=== PATIENT | male | born 1950 | race Caucasian/White ===

== ENCOUNTER → 2016-08-29 | Outpatient (CLI) | payer OTHER ==
[~2016-08-29] MED LIST: ALBU18002 INH; AMLO-114 PO; ATOR-22 PO; AZIT500T26 PO; CLR10 PO; DICL-201 PO; GLC/500 PO; HYDR12.55 PO; LISI-725 PO; MULT-506 PO; OMEG10007 PO; PRLSR20 PO
--- NOTE | 2016-08-29 14:06 | DIAGNOSTIC IMAGING REPORT ---
FOOT 2 VIEWS CLINICAL HISTORY: DM, NAVICULAR FRACTURE trauma. Pain. COMPARISON: None. DISCUSSION: No change compared to the prior study read midpole navicular fracture with slight dorsal displacement. No major evidence for interval healing. Pars planus deformity. Subtalar joint is intact. There is no evidence for soft tissue swelling. IMPRESSION: Fracture mid and ventricular unchanged from the prior exam Electronically signed by: Renan Lara M.D. 08/29/2016 2:05 PM Dictated Date/Time: 08/29/2016 2:02 PM
== END | disposition home or self-care (01) ==
LOC: C.RAD 13:08
PROVIDERS: ATTEND Internal Medicine Endocrinology, Diabetes & Metabolism
DX: S92.252A Displaced fracture of navicular [scaphoid] of left foot, initial encounter for closed fracture (principal); X58.XXXA Exposure to other specified factors, initial encounter; E11.9 Type 2 diabetes mellitus without complications

== ENCOUNTER 2017-05-04 04:50 | Inpatient (IN) | payer OTHER ==
[2017-04-07 13:29] VITALS: BMI 35.0
--- NOTE | 2017-04-07 14:04 | PAT Medication Instructions ---
Service Date Apr 07, 2017. Current Home Medication List Albuterol Sulfate (Proair Respiclick), 2 PUFFS INH PRN Amlodipine (Norvasc), 10 MG PO QAM Atorvastatin (Lipitor), 20 MG PO QPM Azithromycin (Zithromax), 500 MG PO 3XWEEK Diclofenac (Voltaren), 75 MG PO BID Fish Oil ([place]-3), 1 CAP PO QAM Hydrochlorothiazide (Hydrochlorothiazide), 1 TAB PO QPM Lisinopril (Zestril), 20 MG PO QAM Metformin Hcl (Glucophage), 500 MG PO BID Multivitamin (Multivitamin), 1 TAB PO QPM Omeprazole (Prilosec), 20 MG PO BID Medication Instructions For Your Scheduled Surgery Azithromycin (Zithromax), 500 MG PO 3XWEEK (continue as directed) - Check with surgeon for instructions: Diclofenac (Voltaren), 75 MG PO BID - Hold the following medications 2 weeks prior to surgery: Fish Oil ([place]-3), 1 CAP PO QAM - Hold the following medications 48 hours prior to surgery: Metformin Hcl (Glucophage), 500 MG PO BID - Hold the following medications the morning of surgery: Lisinopril (Zestril), 20 MG PO QAM - Take the following medications the morning of surgery with a sip of water: Albuterol Sulfate (Proair Respiclick), 2 PUFFS INH PRN Amlodipine (Norvasc), 10 MG PO QAM Omeprazole (Prilosec), 20 MG PO BID - Take the following medications as scheduled the night before surgery: Omeprazole (Prilosec), 20 MG PO BID Multivitamin (Multivitamin), 1 TAB PO QPM Atorvastatin (Lipitor), 20 MG PO QPM Hydrochlorothiazide (Hydrochlorothiazide), 1 TAB PO QPM If you have any questions please call us at [phone] or [phone] or [phone]
[2017-04-07 14:57] LABS: BASO % 0.3 %; BASO ABS # 0.04 K/uL (0-0.2); COMPLETE YES; EOS % 3.2 %; HEMATOCRIT 40.5 % (42-52); IG% 0.5 %; LYMPH % 22.3 %; LYMPH ABS # 2.65 K/uL (1.2-3.4); MEAN CELL VOLUME 90.8 fL (80-100); MEAN CORPUSCULAR HEMOGLOBIN 29.6 pg (25-34); MEAN CORPUSCULAR HGB CONC 32.6 g/dl (32-36); MONO % 4.6 %; NEUT % 69.1 %; PLATELET COUNT 245 K/uL (130-400); RED BLOOD COUNT 4.46 M/uL (4.7-6.1); WHITE BLOOD COUNT 11.86 K/uL (4.8-10.8)
[2017-04-07 14:59] LABS: URINE APPEARANCE CLEAR (CLEAR); URINE COLOR DK YELLOW; URINE EPITHELIAL CELL AUTO >30 /lpf (0-5); URINE NITRITE NEG (NEG); URINE SPECIFIC GRAVITY 1.031 (1.000-1.030); UROBILINOGEN NEG (NEG); ZZUR CULT IF INDIC CLEAN CATCH NO
[2017-04-07 15:04] LABS: BUN/CREATININE RATIO 24.1 (10-20); CALCIUM 9.2 mg/dl (8.5-10.1); CREATININE 1.4 mg/dl (0.60-1.40); POTASSIUM 5.3 mmol/L (3.5-5.1)
[2017-04-07 15:06] LABS: PARTIAL THROMBOPLASTIN RATIO 1.1; PROTHROMBIN TIME (PATIENT) 10.7 SECONDS (9.0-12.0)
[2017-04-07 15:11] LABS: MANUAL MICROSCOPIC REQUIRED? NO; REVIEW REQ? NO
[2017-04-07 15:12] LABS: URINE BILIRUBIN NEG (NEG)
[2017-04-08 06:53] LABS: ESTIMATED AVERAGE GLUCOSE 140 mg/dl; HA1C FLAG Normal (Normal)
--- NOTE | 2017-05-03 15:33 | HISTORY & PHYSICAL EXAMINATION ---
DATE OF ADMISSION: 05/04/2017 CHIEF COMPLAINT: Chronic right hip pain. HISTORY OF PRESENT ILLNESS: This is a 66-year-old male patient of Dr. Weiner, complaining of chronic right hip pain, longstanding, now progressively getting worse. The patient has failed conservative treatment including anti-inflammatories and the use of physical therapy. The patient has increased pain with weightbearing activities and his pain does interfere with his activities of daily living. He has also had intraarticular cortisone injections. PAST MEDICAL HISTORY: Hypertension, hypercholesterolemia, irregular heartbeat, recent pneumonia, carpal tunnel syndrome, diabetes mellitus, rheumatoid arthritis, TMJ, neck problems, sciatica, obesity, kidney stones, and skin cancer with chemotherapy. SOCIAL HISTORY: He is a nonsmoker and nondrinker. FAMILY HISTORY: Noncontributory. REVIEW OF SYSTEMS: The patient complains of right hip chronic pain. Otherwise, denies any shortness of breath, chest pain, nausea, vomiting or any other joint complaints. PAST SURGICAL HISTORY: Hand surgery and tooth extraction surgery. MEDICATIONS: 1. Claritin 10 mg daily. 2. Atorvastatin 20 daily. 3. Metformin 500 mg b.i.d. 4. Amlodipine 10 mg daily. 5. Omeprazole 20 mg daily. 6. Lisinopril 20 mg daily. 7. Diclofenac sodium 75 mg as needed. 8. Azithromycin 500 mg on Thursday, Thursday, and Thursday. 9. Hydrochlorothiazide 12.5 mg daily. 10. ProAir HFA 90 mcg 2 puffs inhalation every 4-6 hours as needed. 11. [place] 3 daily. 12. Centrum Silver multivitamin daily. ALLERGIES: No known drug allergies. PHYSICAL EXAMINATION: GENERAL: Well-developed and well-nourished 66-year-old male in no acute distress. He is alert and oriented x3 and pleasant. HEENT: Normocephalic and atraumatic. Extraocular motions are intact. Pupils are equal and reactive to light. HEART: Irregular rate and rhythm consistent with atrial fibrillation. LUNGS: Clear. ABDOMEN: Soft and nontender. Bowel sounds are present. EXTREMITIES: Right hip reveals passive range of motion with pain into his groin with log rolling at 90/90 degrees. The patient has 5/5 strength. NEUROLOGIC: Neurovascularly, he is intact in his right lower extremity. DIAGNOSES: Right hip end-stage osteoarthritis with a history of hypertension, hypercholesterolemia, irregular heartbeat, atrial fibrillation, carpal tunnel syndrome, diabetes mellitus, rheumatoid arthritis, temporomandibular joint syndrome, neck problems, sciatica, obesity, kidney stones and a history of skin cancer with chemotherapy. PLAN: The patient was advised of his diagnoses. Indications, risks, benefits, and postop course have all been reviewed. The patient wishes to proceed with a right total hip arthroplasty. Necessary consent forms, preoperative testing and clearances will be obtained. JORGE ALBERTO
[~2017-05-04] VITALS: Ht 180.3 cm; Wt 115.0 kg
[2017-05-04] VITALS (11 sets, daily range): BP systolic 116–154; BP diastolic 70–90; PULSE 72–95; TEMP 36.4–37.1; O2SAT 92–100; Ht 180.3 cm; Wt 115.0 kg
[~2017-05-04 04:50] MED LIST changes: -CLR10 PO; +CZR50 PO; -LISI-725 PO
[2017-05-04] MEDS: TRANEXAMIC ACID INJ 1,000 MG in SODIUM CHLORIDE 0.9% 100ML 100 ML IV SCH ×2 (06:00→06:30)
[2017-05-04] MEDS ORDERED: CEFAZOLIN 2000 MG/60 ML D5W 60 ML IV SCH (06:00)
[2017-05-04] MEDS ORDERED: ROPIVACAINE 5MG/ML 30 ML 150 MG, BUPIVACAINE/EPINEPHR 0.5% MPF 30 ML, KETOROLAC TROMETH... INFIL SCH ×6 (06:00)
[2017-05-04] MEDS ORDERED: GABAPENTIN 300 MG CAP PO SCH (06:00)
[2017-05-04] MEDS ORDERED: LACTATED RINGER'S 1000ML 1,000 ML IV SCH (06:00)
[2017-05-04] MEDS ORDERED: FAMOTIDINE 20 MG TAB PO SCH (06:00)
[2017-05-04] MEDS ORDERED: LACTATED RINGER'S 1000ML 500 ML IV ONE (06:00)
[2017-05-04] MEDS ORDERED: ACETAMINOPHEN 500 MG TAB PO SCH (06:00)
[2017-05-04] MEDS ORDERED: CeleBREX 200 MG CAP PO SCH (06:00)
[2017-05-04] MEDS ORDERED: METOCLOPRAMIDE HCL 10 MG TAB PO SCH (06:00)
[2017-05-04] MEDS: LACTATED RINGER'S 1000ML 1,000 ML IV SCH ×2 (06:09→11:04)
[2017-05-04] MEDS ORDERED: BUPIVACAINE 0.5 % 5 MG/1 ML PF 10ML VIAL ONE (06:34)
[2017-05-04] MEDS ORDERED: FENTANYL CITRATE INJ 50 MCG/1 ML 2 ML VIAL IV PRN (06:45)
[2017-05-04] MEDS ORDERED: ATROPINE SULFATE 0.1 MG/ML 5ML SYR IV PRN (06:45)
[2017-05-04] MEDS ORDERED: EpHEDrine SULFATE INJ 50 MG/ML AMP IV PRN (06:45)
[2017-05-04] MEDS ORDERED: ONDANSETRON INJ 2 MG/ML 2 ML VIAL IV PRN ×2 (06:45→09:45)
[2017-05-04] MEDS ORDERED: FENTANYL CITRATE INJ 50 MCG/1 ML 2 ML VIAL ONE (06:48)
[2017-05-04] MEDS ORDERED: MIDAZOLAM HCL 1 MG/ML 2ML VIAL ONE ×2 (06:49)
--- NOTE | 2017-05-04 07:02 | History & Physical Bridge Note ---
H&P Re-Evaluation Bridge Note: I have examined the patient, reviewed the History & Physical and in the interval since the performance of the History & Physical I have noted the following changes of clinical significance: No changes noted
[2017-05-04] MEDS ORDERED: BACITRACIN 50000 UNIT VIAL ONE (07:18)
[2017-05-04] MEDS ORDERED: POVIDONE-IODINE OP SOLN 30 ML BTL ONE (07:18)
[2017-05-04] MEDS ORDERED: ORTHO JOINT ANESTHETIC ONE (08:08)
[2017-05-04] MEDS ORDERED: PROPOFOL IV EMULSION 10 MG/ML 20 ML VIAL IV ONE (08:18)
--- NOTE | 2017-05-04 09:24 | [facility] Post Operative Brief Note ---
Immediate Operative Summary Operative Date May 04, 2017. Pre-Operative Diagnosis Right hip end-stage osteoarthritis Post-Operative Diagnosis Right hip end-stage osteoarthritis Procedure(s) Performed Right total hip arthroplasty Surgeon Dr. Weiner Skate Hop Surgeon(s) Renan Ware PA-C Estimated Blood Loss 100mL Findings end stage djdoa grade 4 subluxation joint Specimens A. Right femoral head Drains 2 hemovac Anesthesia spinal sedation orthomix Complication(s) None Disposition Recovery Room / PACU
[2017-05-04] MEDS ORDERED: SOD PHOSPHATE/SOD BIPHOSPHATE ENEMA 132 ML BTL PR PRN (09:45)
[2017-05-04] MEDS ORDERED: ZOLPIDEM TARTRATE 5 MG TAB PO PRN (09:45)
[2017-05-04] MEDS ORDERED: BISACODYL 10 MG SUPP PR PRN (09:45)
[2017-05-04] MEDS ORDERED: MAGNESIUM HYDROXIDE SUSP 30 ML UDC PO PRN (09:45)
[2017-05-04] MEDS ORDERED: MoRPHine SULFATE 2 MG/ML CARP IV PRN (09:45)
[2017-05-04] MEDS ORDERED: METOCLOPRAMIDE HCL INJ 5 MG/ML 2 ML VIAL IV PRN (09:45)
--- NOTE | 2017-05-04 10:37 | DIAGNOSTIC IMAGING REPORT ---
SINGLE VIEW PELVIS; SINGLE VIEW RIGHT HIP CLINICAL HISTORY: Postoperative examination. FINDINGS: An AP portable view of the hips and pelvis with a crosstable lateral portable view of the right hip are obtained. A bipolar right hip arthroplasty is in near-anatomic alignment. 2 cortical lag screws transfix the acetabular cup. No acute fracture is identified. There are expected postoperative changes overlying the right hip including skin clips, subcutaneous gas, a surgical drain, and soft tissue swelling. Mild arthritic change is noted in the left hip. IMPRESSION: Expected postoperative findings status post right hip arthroplasty. No acute fracture is seen. Electronically signed by: Clem Resendez M.D. 05/04/2017 10:35 AM Dictated Date/Time: 05/04/2017 10:30 AM
[2017-05-04] MEDS ORDERED: GLUCAGON FOR INJ 1 MG VIAL SQ PRN (10:45)
[2017-05-04] MEDS ORDERED: DEXTROSE 50% 50 ML SYR IV PRN (10:45)
[2017-05-04] MEDS ORDERED: GLUCOSE 10 TABS/TUBE PO PRN (10:45)
[2017-05-04] MEDS ORDERED: GLUCOSE 40% GEL 15 GM TUBE PO PRN (10:45)
[2017-05-04] MEDS ORDERED: MoRPHine SULFATE 4 MG/ML 1 ML CARP\\VIAL IV PRN (10:45)
--- NOTE | 2017-05-04 10:48 | Anesthesiology Progress Note ---
Anesthesia Post Op Note Date & Time May 04, 2017 at 10:47 Vital Signs Pain Intensity: 0 Vital Signs Past 12 Hours Date Time Temp Pulse Resp B/P (MAP) Pulse Ox O2 Delivery O2 Flow Rate FiO2 05/04/17 10:31 135/68 05/04/17 10:28 88 17 05/04/17 10:28 90 17 97 05/04/17 10:25 36.4 89 18 124/77 95 Nasal Cannula 3 05/04/17 10:25 124/77 05/04/17 10:23 95 17 99 05/04/17 10:23 92 17 05/04/17 10:20 125/81 05/04/17 10:18 79 18 97 05/04/17 10:18 81 18 05/04/17 10:16 119/83 05/04/17 10:13 86 16 05/04/17 10:13 87 16 99 05/04/17 10:11 126/73 05/04/17 10:08 85 16 97 05/04/17 10:08 74 16 05/04/17 10:06 138/72 05/04/17 10:03 81 19 05/04/17 10:03 90 19 98 05/04/17 10:00 136/85 05/04/17 09:58 69 20 05/04/17 09:58 81 20 99 05/04/17 09:56 126/58 05/04/17 09:53 81 19 05/04/17 09:53 82 19 99 05/04/17 09:51 138/63 05/04/17 09:48 85 26 99 05/04/17 09:48 78 26 05/04/17 09:46 125/72 05/04/17 09:44 125/69 05/04/17 09:43 88 20 05/04/17 09:43 97 20 97 05/04/17 09:41 05/04/17 09:39 36 89 12 125/69 99 Nasal Cannula 3 05/04/17 05:32 36.4 77 20 154/72 95 Room Air Notes Mental Status: alert / awake / arousable, participated in evaluation Pt Amnestic to Procedure: Yes Nausea / Vomiting: adequately controlled Pain: adequately controlled Airway Patency, RR, SpO2: stable & adequate BP & HR: stable & adequate Hydration State: stable & adequate Neuraxial Anesthesia: was administered, sensory block is resolving Anesthetic Complications: no major complications apparent
[2017-05-04] MEDS ORDERED: ALBUTEROL HFA 8 GM INHALER INH PRN (12:30)
[2017-05-04] MEDS: SODIUM CHLORIDE 0.9% 1000ML 1,000 ML IV SCH ×2 (13:53→19:10)
[2017-05-04] MEDS: ACETAMINOPHEN 500 MG TAB PO SCH ×2 (13:54→21:38)
[2017-05-04] MEDS: CEFAZOLIN IV 2,000 MG in DEXTROSE 5% 50ML 50 ML IV SCH ×2 (13:54→21:38)
[2017-05-04] MEDS ORDERED: CEFAZOLIN 2000MG IV PUSH 10 ML IV SCH (14:00)
--- NOTE | 2017-05-04 18:15 | [facility] Operative Report ---
Operative Report Operative Date May 04, 2017. Pre-Operative Diagnosis Right hip end-stage osteoarthritis Post-Operative Diagnosis same Surgeon Dr. Weiner Optical Effects Camera Operator Surgeon(s) Renan Ware PA-C Estimated Blood Loss 100mL Findings Superior lateral subluxation end-stage grade 4 DJD right hip Specimens A. Right femoral head Drains 2 hemovac Anesthesia spinal sedation orthomix Complication(s) None Disposition Recovery Room / PACU Indications Progressive osteoarthritis right hip failed conservative management grade 4 DJD [id number] right hip Description of Procedure Patient taken to the operating room and anesthetized under spinal anesthesia. Patient was placed supine on the operating table. Exam of the involved extremity demonstrated that he had good flexibility of the hip with some restriction of internal rotation and abduction. . Patient was placed on a sacral pad the involved leg was placed on a foot bump to flex knee 90 and hip 60. A Silva-type approach was performed to the right hip. A longitudinal lateral incision was made over the hip. The skin was incised sharply. The fat was divided down to the fascia. Subcutaneous bleeders are cauterized. Trochanter bursa was resected. The gluteus medius was noted to be intact with a large well-developed muscle . A split was made in the gluteus medius muscle between the anterior 40% and posterior 60%. The minimus was divided longitudinally reflected off the underlying capsule. The capsule was incised down to the hip joint. Intra-articular findings demonstrated grade 4 bone-on- bone superior lateral subluxation femoral neck osteophytes some superior acetabular osteophytes and inferior medial osteophytes.. An incision was made through the gluteus medius leaving a cuff of tendon for repair on the greater trochanter. The vastus lateralis was split longitudinally for about 3 cm. A muscular capsular flap was elevated off the hip. The hip was dislocated with use of bone out with flexion and external rotation. The femoral neck cut was made approximately 15 mm proximal to the lesser trochanter in neutral anteversion. Head and neck fragment were removed. The femoral head demonstrated eburnated bone . A self-retaining superior tractor was impacted into the ilium a blunt Laila retractor was placed anteriorly a double angled inferior retractor was placed on the ischium. The acetabular labrum was resected all osteophytes were resected the soft tissue within the acetabular fossa was resected. An anterior capsular release was performed. Some the capsule was resected for exposure. The first reamer was used to medialize reaming to the inner table and then sequential reamers for the acetabulum were used in 2 mm increments up to a size 54. I used the [employer] total hip arthroplasty system using a PSL type cup. Trial reduction demonstrated a 54 millimeter cup was the appropriate size and fit. The placement of the final implant was performed after irrigating the acetabulum with antibiotic solution with pulsatile lavage. The position of the cup was approximately 15 anteversion 45 abduction. Good fixation was performed. 2 screws were placed in the posterior superior quadrant for further fixation through the cup. The acetabular liner was impacted into position. The 10:30 degree liner 54 with 36 mm inner diameter acetabular liner was used. The Orthomix injection was placed around the capsule and then the retractors were removed and attention was taken to the femur. The femur was exposed with flexion external rotation. Canal reamer was used followed by sequential broaches up to a size 5. This had a good fit and fill. Trial reduction was performed on 132 neck angle based on preoperative templating. A +0 neck length gave equal leg lengths and stable range of motion through full flexion flexion adduction and internal rotation and extension and external rotation. The trials removed and after irrigation again and the final implant was impacted which was the Accolade 2 size 5 stem with 132 neck angle . The [employer] ceramic head size 36+0 neck was used. After final implants replaced the reduction was noted to be stable. 2 drains were placed deep. These were brought out laterally and connected to Hemovac. The minimus was closed with interrupted [id number] #1 Vicryl sutures. The medius was closed with transosseous #5 FiberWire sutures using Javon Ari stitch technique. Lateral row soft tissue repair was performed with figure of 8 #2 FiberWire sutures. The medius split was closed with interrupted figure-of- eight #1 Vicryl sutures. The vastus lateralis was closed with interrupted figure minimal Vicryl sutures. The fascia danika was closed with interrupted figure of 8 number Vicryl sutures. The fat was closed with [id number] #2 Vicryl sutures. Skin was closed with lara sterile dressings were applied. The patient tolerated procedure well.[Renan Ware] My physician nurse practitioner physician assistant assisted me in the procedure with patient positioning And draping soft tissue retraction instrument management suture management and assisted in the outer layer closure and will participate in the postoperative care the patient thank you. I attest to the content of the Intraoperative Record and any orders documented therein. Any exceptions are noted below.
[2017-05-04] MEDS: INSULIN ASPART 100 UNITS/ML 3 ML PEN SC SCH ×2 (19:02→20:39)
[2017-05-04] MEDS: OXYCODONE HCL IR 5 MG TAB (IMMEDIATE RELEASE) PO PRN ×2 (19:06→23:38)
[2017-05-04] MEDS: CeleBREX 200 MG CAP PO SCH (20:35)
[2017-05-04] MEDS: ASPIRIN 81 MG ECTAB PO SCH (20:35)
[2017-05-04] MEDS: DOCUSATE SODIUM 100 MG CAP PO SCH (20:35)
[2017-05-04] MEDS: ATORVASTATIN 20 MG TAB PO SCH (20:36)
[2017-05-04] MEDS: HYDROCHLOROTHIAZIDE 25 MG TAB PO SCH (20:54)
[2017-05-05 03:45] VITALS: BP 150/82; PULSE 92; TEMP 36.5; O2SAT 99
[2017-05-05] MEDS: OXYCODONE HCL IR 5 MG TAB (IMMEDIATE RELEASE) PO PRN ×4 (05:25→18:37)
[2017-05-05] MEDS: SODIUM CHLORIDE 0.9% 1000ML 1,000 ML IV SCH (05:25)
[2017-05-05] MEDS: ACETAMINOPHEN 500 MG TAB PO SCH ×3 (05:31→21:11)
[2017-05-05 05:49] LABS: BASO % 0.3 %; BASO ABS # 0.04 K/uL (0-0.2); COMPLETE YES; EOS % 1.2 %; HEMATOCRIT 31.4 % (42-52); IG% 0.3 %; LYMPH % 12.4 %; MEAN CELL VOLUME 90.5 fL (80-100); MEAN CORPUSCULAR HEMOGLOBIN 30.8 pg (25-34); MEAN CORPUSCULAR HGB CONC 34.1 g/dl (32-36); MEAN PLATELET VOLUME 10.2 fL (7.4-10.4); MONO % 7.7 %; NEUT % 78.1 %; PLATELET COUNT 200 K/uL (130-400); RED BLOOD COUNT 3.47 M/uL (4.7-6.1); WHITE BLOOD COUNT 15.29 K/uL (4.8-10.8)
[2017-05-05 06:24] LABS: BUN/CREATININE RATIO 18.4 (10-20); CREATININE 1.22 mg/dl (0.60-1.40); POTASSIUM 4.7 mmol/L (3.5-5.1)
[2017-05-05 07:10] VITALS: BP 131/85; PULSE 88; TEMP 37; O2SAT 94
--- NOTE | 2017-05-05 08:00 | Orthopedic Progress Note ---
Orthopedic Progress Note Date of Service May 05, 2017. Subjective Post OP Day: 1 Reports: feeling well, pain controlled w PO medications, Denies: complaints, chest pain, SOB, nausea / vomiting, light headedness, calf pain Objective calves soft nontender, N/V intact, hip located, capillary refill less than 2 sec., dressing C/D/I, A&O x3, toes mobile Silverlon in tact. Date Time Temp Pulse Resp B/P (MAP) Pulse Ox O2 Delivery O2 Flow Rate FiO2 05/05/17 07:10 37.0 88 16 131/85 (100) 94 Room Air 05/05/17 03:45 36.5 92 16 150/82 (104) 99 Room Air 05/04/17 23:40 Room Air 05/04/17 23:25 37.1 88 16 135/80 (98) 95 Room Air 05/04/17 20:33 88 16 153/90 (111) 97 Room Air 05/04/17 18:37 36.7 72 18 151/85 (107) 100 Room Air 05/04/17 15:45 96 Room Air 05/04/17 15:04 36.4 95 18 134/78 (96) 96 Room Air 05/04/17 13:44 36.6 93 17 132/79 (96) 95 Room Air 05/04/17 12:44 37.1 87 19 116/77 (90) 98 Nasal Cannula 2.0 05/04/17 11:45 36.5 74 17 136/81 (99) 96 Nasal Cannula 2.0 05/04/17 11:15 36.6 92 18 136/79 (98) 96 Nasal Cannula 2.0 05/04/17 10:45 92 Nasal Cannula 3.0 05/04/17 10:45 92 Nasal Cannula 3.0 05/04/17 10:45 36.6 79 20 120/70 (87) 92 Nasal Cannula 3.0 05/04/17 10:31 135/68 05/04/17 10:28 88 17 05/04/17 10:28 90 17 97 05/04/17 10:25 36.4 89 18 124/77 95 Nasal Cannula 3 05/04/17 10:25 124/77 05/04/17 10:23 95 17 99 05/04/17 10:23 92 17 05/04/17 10:20 125/81 05/04/17 10:18 79 18 97 05/04/17 10:18 81 18 05/04/17 10:16 119/83 05/04/17 10:13 86 16 05/04/17 10:13 87 16 99 05/04/17 10:11 126/73 05/04/17 10:08 85 16 97 05/04/17 10:08 74 16 05/04/17 10:06 138/72 05/04/17 10:03 81 19 05/04/17 10:03 90 19 98 05/04/17 10:00 136/85 05/04/17 09:58 69 20 05/04/17 09:58 81 20 99 05/04/17 09:56 126/58 05/04/17 09:53 81 19 05/04/17 09:53 82 19 99 05/04/17 09:51 138/63 05/04/17 09:48 85 26 99 05/04/17 09:48 78 26 05/04/17 09:46 125/72 05/04/17 09:44 125/69 05/04/17 09:43 88 20 05/04/17 09:43 97 20 97 05/04/17 09:41 05/04/17 09:39 36 89 12 125/69 99 Nasal Cannula 3 Laboratory Results 24 Hours: Test 05/05/17 05:30 White Blood Count 15.29 K/uL Red Blood Count 3.47 M/uL Hemoglobin 10.7 g/dL Hematocrit 31.4 % Mean Corpuscular Volume 90.5 fL Mean Corpuscular Hemoglobin 30.8 pg Mean Corpuscular Hemoglobin Concent 34.1 g/dl Platelet Count 200 K/uL Mean Platelet Volume 10.2 fL Neutrophils (%) (Auto) 78.1 % Lymphocytes (%) (Auto) 12.4 % Monocytes (%) (Auto) 7.7 % Eosinophils (%) (Auto) 1.2 % Basophils (%) (Auto) 0.3 % Neutrophils # (Auto) 11.94 K/uL Lymphocytes # (Auto) 1.90 K/uL Monocytes # (Auto) 1.17 K/uL Eosinophils # (Auto) 0.19 K/uL Basophils # (Auto) 0.04 K/uL Assessment & Plan Assessment: POD #1, Right ZION Plan: PT/ OT DVT proph- ASA D/C planning- Home w HH As per medicine. Inhouse Planning Pain Management: Celebrex, Morphine, PO Tylenol, Oxy IR DVT Prophylaxis: TEDs, SCDs, ASA Discharge Planning Discharge Planning: home with home health Pain Management: Celebrex, PO Tylenol, Oxy IR DVT Prophylaxis: TEDs, ASA Therapy: Physical Therapy, Occupational Therapy
[2017-05-05] MEDS: ASPIRIN 81 MG ECTAB PO SCH ×2 (08:58→21:09)
[2017-05-05] MEDS: CeleBREX 200 MG CAP PO SCH ×2 (08:59→21:18)
[2017-05-05] MEDS: PANTOprazole SOD 40 MG TAB PO SCH (08:59)
[2017-05-05] MEDS: AMLODIPINE BESYLATE 5 MG TAB PO SCH (08:59)
[2017-05-05] MEDS: DOCUSATE SODIUM 100 MG CAP PO SCH ×2 (08:59→21:08)
[2017-05-05] MEDS: LOSARTAN POTASSIUM 50 MG TAB PO SCH (09:00)
[2017-05-05] MEDS: MULTIVITAMIN TAB PO SCH (09:00)
[2017-05-05] MEDS: INSULIN ASPART 100 UNITS/ML 3 ML PEN SC SCH ×4 (09:04→21:17)
--- NOTE | 2017-05-05 10:01 | Anesthesiology Progress Note ---
Anesthesia Post Op Note Date & Time May 05, 2017 at 09:59 Vital Signs Vital Signs Past 12 Hours Date Time Temp Pulse Resp B/P (MAP) Pulse Ox O2 Delivery O2 Flow Rate FiO2 05/05/17 07:10 37.0 88 16 131/85 (100) 94 Room Air 05/05/17 03:45 36.5 92 16 150/82 (104) 99 Room Air 05/04/17 23:40 Room Air 05/04/17 23:25 37.1 88 16 135/80 (98) 95 Room Air Notes Mental Status: alert / awake / arousable, participated in evaluation Pt Amnestic to Procedure: Yes Nausea / Vomiting: adequately controlled Pain: adequately controlled Airway Patency, RR, SpO2: stable & adequate BP & HR: stable & adequate Hydration State: stable & adequate Neuraxial Anesthesia: was administered, sensory block resolved Anesthetic Complications: no major complications apparent
--- NOTE | 2017-05-05 10:22 | Medical Consult ---
Consultation Date of Consultation: May 05, 2017. Attending Physician: Edil Weiner M.D. History of Present Illness 66 year old M with PMH Hypertension on 3 antihypertensive agents, hypercholesterolemia, irregular heartbeat but denies history of atrial fibrillation and not on anticoagulation s/p Right total hip arthroplasty on for Right hip end-stage osteoarthritis, currently as inpatient and seen by medicine instructional design consultant after physical therapy session. Patient reports no acute events after the surgery. Has some right hip pain after physical therapy but controlled. Reports no bowel movements in 2 days. We reviewed his medication list. Family History Patient reports no known family medical history. Social History Smoking Status: Former Smoker Allergies Coded Allergies: No Known Allergies (Unverified , 05/04/17) Home Medications Reported Home Medications Medications Dose Route/Sig Max Daily Dose Days Date Category Dose Instructions Losartan Potassium 50 Mg Tab 1 Tab PO QAM 04/30/17 Reported Proair Respiclick (Albuterol Sulfate) 108 Mcg/Act Aer 2 Puffs INH PRN 04/07/17 Reported Zithromax (Azithromycin) 500 Mg Tab 500 Mg PO 3XWEEK 04/07/17 Reported AM Thursday Prilosec (Omeprazole) 20 Mg Capcr 20 Mg PO BID 04/07/17 Reported Voltaren (Diclofenac Sodium) 75 Mg Tabcr 75 Mg PO BID 04/07/17 Reported WITH FOOD Norvasc (Amlodipine Besylate) 10 Mg Tab 10 Mg PO QAM 04/07/17 Reported Hydrochlorothiazide 12.5 Mg Tab 1 Tab PO QPM 90 04/07/17 Reported Multivitamin (Multivitamins) Tab 1 Tab PO QPM 04/07/17 Reported [place]-3 (Fish Oil) 1 Ea Cap 1 Cap PO QAM 04/07/17 Reported Glucophage (Metformin Hcl) 500 Mg Tab 500 Mg PO BID 04/07/17 Reported Lipitor (Atorvastatin Calcium) 20 Mg Tab 20 Mg PO QPM 04/07/17 Reported Current Inpatient Medications Current Inpatient Medications Medications (Trade) Dose Ordered Sig/Linus Route Start Time Stop Time Status Last Admin Dose Admin Amlodipine Besylate (Norvasc Tab) 10 mg QAM PO 05/05/17 09:00 06/04/17 08:59 05/05/17 08:59 10 MG Atorvastatin Calcium (Lipitor Tab) 20 mg QPM PO 05/04/17 21:00 06/03/17 20:59 05/04/17 20:36 20 MG Losartan Potassium (coZAAR TAB) 50 mg QAM PO 05/05/17 09:00 06/04/17 08:59 05/05/17 09:00 50 MG Albuterol (Ventolin Hfa Inhaler) 2 puffs Q4H PRN INH 05/04/17 12:30 06/03/17 12:29 Hydrochlorothiazide (Hydrochlorothiazide Tab) 12.5 mg PM PO 05/04/17 21:00 06/03/17 20:59 05/04/17 20:54 12.5 MG Celecoxib (CeleBREX CAP) 200 mg BID PO 05/04/17 21:00 06/03/17 20:59 05/05/17 08:59 200 MG Oxycodone HCl (Roxicodone Immediate Rel Tab) 1 TABLET FOR PAIN RATING... Q4H PRN PO 05/04/17 09:45 05/18/17 09:44 05/05/17 09:09 10 MG Morphine Sulfate (MoRPHine SULFATE INJ) 2 mg Q4H PRN IV 05/04/17 09:45 05/18/17 09:44 Acetaminophen (Tylenol Tab) 1,000 mg Q8H PO 05/04/17 14:00 06/03/17 13:59 05/05/17 05:31 1,000 MG Magnesium Hydroxide (Milk Of Magnesia Susp) 30 ml Q6H PRN PO 05/04/17 09:45 06/03/17 09:44 Bisacodyl (Dulcolax Supp) 10 mg DAILY PRN GA 05/04/17 09:45 06/03/17 09:44 Sodium Biphosphate/ Sodium Phosphate (Fleet Enema) 132 ml DAILY PRN GA 05/04/17 09:45 06/03/17 09:44 Docusate Sodium (coLACE CAP) 100 mg BID PO 05/04/17 21:00 06/03/17 20:59 05/05/17 08:59 100 MG Diphenhydramine HCl (Benadryl Cap) 25 mg Q8H PRN PO 05/04/17 09:45 06/03/17 09:44 Zolpidem Tartrate (Ambien Tab) 5 mg HSZ PRN PO 05/04/17 09:45 06/03/17 09:44 Multivitamins (Multivitamin Tab) 1 tab QAM PO 05/05/17 09:00 06/04/17 08:59 05/05/17 09:00 1 TAB Ondansetron HCl (Zofran Inj) 4 mg Q6H PRN IV 05/04/17 09:45 06/03/17 09:44 05/05/17 08:14 4 MG Metoclopramide HCl (Reglan Inj) 10 mg Q6H PRN IV 05/04/17 09:45 06/03/17 09:44 Pantoprazole Sodium (Protonix Tab) 40 mg QAM PO 05/05/17 09:00 06/04/17 08:59 05/05/17 08:59 40 MG Aspirin (Ecotrin Tab) 81 mg BID PO 05/04/17 21:00 06/03/17 20:59 05/05/17 08:58 81 MG Insulin Aspart (novoLOG ASPART) SLIDING SCALE G... ACHS SC 05/04/17 17:15 06/03/17 17:14 05/05/17 09:04 10 UNITS Morphine Sulfate (MoRPHine SULFATE INJ) 4 mg Q4H PRN IV 05/04/17 10:45 05/18/17 10:44 Glucose (Glucose 40% Gel) 15-30 GRAMS 15 GRAMS... UD PRN PO 05/04/17 10:45 06/03/17 10:44 Glucose (Glucose Chew Tab) 4-8 Tablets 4 Tabl... UD PRN PO 05/04/17 10:45 06/03/17 10:44 Dextrose (Dextrose 50% 50ML Syringe) 25-50ML OF 50% DW IV FOR... UD PRN IV 05/04/17 10:45 06/03/17 10:44 Glucagon (Glucagon Inj) 1 mg UD PRN SQ 05/04/17 10:45 06/03/17 10:44 Physical Exam Date Time Temp Pulse Resp B/P (MAP) Pulse Ox O2 Delivery O2 Flow Rate FiO2 05/05/17 07:10 37.0 88 16 131/85 (100) 94 Room Air 05/05/17 03:45 36.5 92 16 150/82 (104) 99 Room Air 10/16/17 23:40 Room Air 05/04/17 23:25 37.1 88 16 135/80 (98) 95 Room Air 05/04/17 20:33 88 16 153/90 (111) 97 Room Air 05/04/17 18:37 36.7 72 18 151/85 (107) 100 Room Air 05/04/17 15:45 96 Room Air 05/04/17 15:04 36.4 95 18 134/78 (96) 96 Room Air 05/04/17 13:44 36.6 93 17 132/79 (96) 95 Room Air 05/04/17 12:44 37.1 87 19 116/77 (90) 98 Nasal Cannula 2.0 05/04/17 11:45 36.5 74 17 136/81 (99) 96 Nasal Cannula 2.0 05/04/17 11:15 36.6 92 18 136/79 (98) 96 Nasal Cannula 2.0 05/04/17 10:45 92 Nasal Cannula 3.0 05/04/17 10:45 92 Nasal Cannula 3.0 05/04/17 10:45 36.6 79 20 120/70 (87) 92 Nasal Cannula 3.0 05/04/17 10:31 135/68 05/04/17 10:28 88 17 05/04/17 10:28 90 17 97 05/04/17 10:25 36.4 89 18 124/77 95 Nasal Cannula 3 05/04/17 10:25 124/77 05/04/17 10:23 95 17 99 05/04/17 10:23 92 17 05/04/17 10:20 125/81 General Appearance: WD/WN, no apparent distress Head: normocephalic, atraumatic Eyes: normal inspection, EOMI, sclerae normal ENT: normal ENT inspection, hearing grossly normal, pharynx normal Neck: supple, no JVD, trachea midline Respiratory/Chest: chest non-tender, lungs clear, normal breath sounds, no respiratory distress, no accessory muscle use Cardiovascular: regular rate, rhythm, no JVD Abdomen/GI: normal bowel sounds, non tender, soft Back: no muscle spasm Extremities/Musculoskelatal: no calf tenderness, no pedal edema, pelvis stable , + pertinent finding (right hip with MILE drain with serosanguinous fluid) Neurologic/Psych: alert, normal mood/affect, oriented x 3 Laboratory Results Last 24 Hours Test 10/16/17 12:10 05/04/17 17:05 05/04/17 20:29 05/05/17 05:30 Bedside Glucose 144 mg/dl 118 mg/dl 153 mg/dl White Blood Count 15.29 K/uL Red Blood Count 3.47 M/uL Hemoglobin 10.7 g/dL Hematocrit 31.4 % Mean Corpuscular Volume 90.5 fL Mean Corpuscular Hemoglobin 30.8 pg Mean Corpuscular Hemoglobin Concent 34.1 g/dl Platelet Count 200 K/uL Mean Platelet Volume 10.2 fL Neutrophils (%) (Auto) 78.1 % Lymphocytes (%) (Auto) 12.4 % Monocytes (%) (Auto) 7.7 % Eosinophils (%) (Auto) 1.2 % Basophils (%) (Auto) 0.3 % Neutrophils # (Auto) 11.94 K/uL Lymphocytes # (Auto) 1.90 K/uL Monocytes # (Auto) 1.17 K/uL Eosinophils # (Auto) 0.19 K/uL Basophils # (Auto) 0.04 K/uL RDW Standard Deviation 44.8 fL RDW Coefficient of Variation 13.6 % Immature Granulocyte % (Auto) 0.3 % Immature Granulocyte # (Auto) 0.05 K/uL Sodium Level 135 mmol/L Potassium Level 4.7 mmol/L Chloride Level 101 mmol/L Carbon Dioxide Level 22 mmol/L Anion Gap 12.0 mmol/L Blood Urea Nitrogen 22 mg/dl Creatinine 1.22 mg/dl Est Creatinine Clear Calc Drug Dose 75.8 ml/min Estimated GFR () 70.7 Estimated GFR (Non- 61.0 BUN/Creatinine Ratio 18.4 Random Glucose 154 mg/dl Calcium Level 8.0 mg/dl Hepatitis C Antibody Screen NEG Test 05/05/17 08:12 Bedside Glucose 176 mg/dl Assessment & Plan 66 year old M with PMH Hypertension on 3 antihypertensive agents, hypercholesterolemia, irregular heartbeat but denies history of atrial fibrillation and not on anticoagulation s/p Right total hip arthroplasty on for Right hip end-stage osteoarthritis. Medicine, hospitalist asked to evaluate as instructional design consultant Right total hip arthroplasty: post-op Day 1, c/w physical therapy. has MILE drain on right hip, monitor blood loss Hematology Anemic Hgb 10 which is post-op CBC, trend CBC Leukocytosis 15,000: likely post-surgical inflammation, monitor for infection HTN: c/w home dose amlodipine 10 mg daily, HCTZ 12.5 mg daily, Losartan 50 mg daily Dyslipidemia: continue with home dose atorvastatin 20 mg and aspirin 81 mg. Pain medication: acetaminophen 1000 PO mg q8 hours, monitor for liver function enzymes as patient will be receiving 3 grams of acetaminophen daily. Pain medication as per orthopedics team but advise that acetaminophen be switched to prn dosing to avoid liver injury or decrease acetaminophen dosing. Patient also on Celebrex which is an NSAID. Can continue unless it is considered to be a bleeding risk as per orthopedics. Morphine prn GI: patient reports he is eating post-op, continue antiemetics as needed and protonics as needed Constipation: bowel regimen of Docusate 100 mg BID. Add Senna for constipation to prevent ileus especially as patient receiving narcotic pain medication. Have ordered Senna BID DVT ppx: SCDs
[2017-05-05 15:33] VITALS: BP 119/69; PULSE 79; TEMP 37.1; O2SAT 95
[2017-05-05] MEDS: ATORVASTATIN 20 MG TAB PO SCH (21:08)
[2017-05-05] MEDS: SENNA 8.6 MG TAB PO SCH (21:09)
[2017-05-05] MEDS: HYDROCHLOROTHIAZIDE 25 MG TAB PO SCH (21:11)
[2017-05-05 23:00] VITALS: BP 129/69; PULSE 84; TEMP 37.4; O2SAT 94
[2017-05-06] MEDS: OXYCODONE HCL IR 5 MG TAB (IMMEDIATE RELEASE) PO PRN ×2 (02:27→07:30)
[2017-05-06] MEDS: ACETAMINOPHEN 500 MG TAB PO SCH (05:21)
[2017-05-06 06:27] LABS: BASO % 0.2 %; BASO ABS # 0.02 K/uL (0-0.2); COMPLETE YES; EOS % 3.7 %; HEMATOCRIT 26.9 % (42-52); IG% 0.5 %; LYMPH % 17.2 %; LYMPH ABS # 1.87 K/uL (1.2-3.4); MEAN CELL VOLUME 89.7 fL (80-100); MEAN CORPUSCULAR HGB CONC 33.5 g/dl (32-36); MEAN PLATELET VOLUME 9.9 fL (7.4-10.4); MONO % 9.2 %; NEUT % 69.2 %; PLATELET COUNT 164 K/uL (130-400); WHITE BLOOD COUNT 10.85 K/uL (4.8-10.8)
[2017-05-06 06:44] VITALS: BP 116/74; PULSE 82; TEMP 36.9; O2SAT 95
[2017-05-06 06:58] LABS: BUN/CREATININE RATIO 17.9 (10-20); CALCIUM 7.9 mg/dl (8.5-10.1); CREATININE 1.07 mg/dl (0.60-1.40); POTASSIUM 4.2 mmol/L (3.5-5.1)
--- NOTE | 2017-05-06 07:01 | Orthopedic Progress Note ---
Orthopedic Progress Note Date of Service May 06, 2017. Subjective Post OP Day: 2 Reports: feeling well, pain controlled w PO medications, Denies: complaints, chest pain, SOB, nausea / vomiting, light headedness, calf pain Objective calves soft nontender, N/V intact, hip located, capillary refill less than 2 sec., dressing C/D/I, A&O x3, toes mobile Silverlon in tact. Date Time Temp Pulse Resp B/P (MAP) Pulse Ox O2 Delivery O2 Flow Rate FiO2 05/06/17 06:44 36.9 82 16 116/74 (88) 95 Room Air 05/05/17 23:00 37.4 84 16 129/69 (89) 94 Room Air 05/05/17 20:00 Room Air 05/05/17 16:10 Room Air 05/05/17 15:33 37.1 79 17 119/69 (86) 95 Room Air 05/05/17 07:45 Room Air 05/05/17 07:10 37.0 88 16 131/85 (100) 94 Room Air Laboratory Results 24 Hours: Test 05/06/17 06:08 White Blood Count 10.85 K/uL Red Blood Count 3.00 M/uL Hemoglobin 9.0 g/dL Hematocrit 26.9 % Mean Corpuscular Volume 89.7 fL Mean Corpuscular Hemoglobin 30.0 pg Mean Corpuscular Hemoglobin Concent 33.5 g/dl Platelet Count 164 K/uL Mean Platelet Volume 9.9 fL Neutrophils (%) (Auto) 69.2 % Lymphocytes (%) (Auto) 17.2 % Monocytes (%) (Auto) 9.2 % Eosinophils (%) (Auto) 3.7 % Basophils (%) (Auto) 0.2 % Neutrophils # (Auto) 7.51 K/uL Lymphocytes # (Auto) 1.87 K/uL Monocytes # (Auto) 1.00 K/uL Eosinophils # (Auto) 0.40 K/uL Basophils # (Auto) 0.02 K/uL Assessment & Plan Assessment: POD #2, Right ZION Plan: PT/ OT DVT proph- ASA D/C planning- Home w HH today. As per medicine. Inhouse Planning Pain Management: Celebrex, Morphine, PO Tylenol, Oxy IR DVT Prophylaxis: TEDs, SCDs, ASA Discharge Planning Discharge Planning: home with home health Pain Management: Celebrex, PO Tylenol, Oxy IR DVT Prophylaxis: TEDs, ASA Therapy: Physical Therapy, Occupational Therapy
[2017-05-06] MEDS ORDERED: ACET-24 PO (07:04)
[2017-05-06] MEDS ORDERED: CLB200 PO (07:04)
[2017-05-06] MEDS ORDERED: ASPEC81 PO (07:04)
[2017-05-06] MEDS ORDERED: ONDA8TAB6 PO (07:04)
[2017-05-06] MEDS ORDERED: RXC5 PO (07:04)
--- NOTE | 2017-05-06 07:05 | Discharge Instructions ---
Discharge Instructions Date of Service May 06, 2017. Admission Reason for Admission: Right Hip Degenerative Joint Disease Discharge Discharge Diagnosis / Problem: Right ZION Discharge Goals Goal(s): Improve function Activity Recommendations Activity Limitations: as noted below . Instructions / Follow-Up Instructions / Follow-Up ACTIVITY RECOMMENDATIONS: SELF CARE INSTRUCTIONS AFTER TOTAL HIP REPLACEMENT Until the incision and soft tissues around your hip have healed, there is a possibility that the hip prosthesis could dislocate. A. Observe the following precautions to prevent dislocation: 1. Don't bend your hip greater than 90 degrees. 2. Avoid crossing your legs or ankles while standing or lying. 3. Sit with your feet placed 6 inches apart. 4. When sitting, keep your knees below your hips. Sit on a firm surface, avoid deep, soft chairs and couches. Use an elevated toilet seat in the bathroom. 5. Don't bend over at the waist. Use a long handled shoehorn and a sock aid to help you put on your shoes and socks. A shampoo technician can help you vegetable picker objects that are too high or too low to reach. 6. Keep car riding to a minimum for at least one month after surgery. B. Your balance may be shaky for a while. Use crutches or a walker until directed by your doctor. C. Use hand rails when walking on stairs. D. Wear low heeled shoes with non-slip soles. E. Be sure that your floors are free of things that could trip you - throw rugs , electrical cords, small objects. Avoid wet and waxed floors, especially with crutches and canes. F. Try to walk several times a day with rest periods between. G. Continue with all the exercises taught to you in the hospital. Again, make walking a part of your daily routine. SPECIAL CARE INSTRUCTIONS: VERY IMPORTANT TO READ AND REVIEW A. You may still be at risk for phlebitis and blood clots. 1. Wear surgical stockings (DARCY hose) for 2 weeks after surgery to improve circulation and reduce swelling. 2. Take Aspirin 81mg twice daily for 4 weeks or as directed by your doctor. This is your blood thinner. 3. High risk patients may be prescribed a stronger blood thinner if necessary. 4. If you are on Coumadin normally, your family doctor/portable power tool repairer should monitor your blood work. Expect a phone call the day of or the day after bloodwork is drawn to adjust your dosage. B. You must take antibiotics before having dental work, bladder, bowel and other surgery. Your doctor will provide you with a permanent card to carry describing precautions. C. Call [facility] if you have a fever, redness or swelling around the incision, cloudy drainage from incision, or sudden increase in pain in your hip, not relieved by your regular pain medication. D. Please call the office at if you have any concerns or questions about your operation or recovery. * YOU MAY SHOWER, NO TUB BATHS UNTIL CLEARED BY YOUR DOCTOR. * WEAR DARCY HOSE 20 HOURS PER DAY FOR 2 WEEKS. * YOU SHOULD USE A WALKER OR CRUTCHES FOR 2-4 WEEKS. THIS WILL HELP PREVENT STRAIN ON YOUR HIP MUSCLE AND ALLOW IT TO HEAL PROPERLY. YOU MAY WEAN TO A CANE TOLERATED. * MOST PATIENTS WILL HAVE HOME NURSING FOR THERAPY. IF YOU DECIDE TO DO OUTPATIENT PHYSICAL THERAPY, PLEASE SCHEDULE THIS 3 TIMES PER WEEK. * YOU MAY HAVE A LARGE, BAND-GEORGINA LIKE DRESSING (SILVERON). THIS WILL REMAIN ON YOUR INCISION FOR 7 DAYS, THEN CAN BE REMOVED. IF INCISION IS LEAKING THROUGH DRESSING, PLEASE CALL THE OFFICE . FOLLOW UP VISIT: If appointment is not already scheduled: Please call [facility] to make a follow-up appointment for 2 weeks after your surgery at . Current Hospital Diet Patient's current hospital diet: Diabetes Type 2 Diet Discharge Diet Recommended Diet: Diabetes Type 2 Diet Procedures Procedures Performed: Right total hip arthroplasty Pending Studies Studies pending at discharge: no Laboratory Results Hemoglobin A1c Test 04/07/17 14:12 Range/Units Estimated Average Glucose 140 mg/dl Hemoglobin A1c 6.5 H 4.5-5.6 % Medical Emergencies . Who to Call and When: Medical Emergencies: If at any time you feel your situation is an emergency, please call 911 immediately. . Non-Emergent Contact Non-Emergency issues call your: Primary Care Provider . "Provider Documentation" section prepared by Renan Ware. . VTE Core Measure Inpt VTE Proph given/why not?: Other Anticoagulation (asa), T.E.Alma Delia Pate, SCD's [place] Drug Monitoring Program Search Results: patient reviewed within database, no issues identified
[2017-05-06] MEDS: ASPIRIN 81 MG ECTAB PO SCH (07:22)
[2017-05-06] MEDS: DOCUSATE SODIUM 100 MG CAP PO SCH (07:22)
[2017-05-06] MEDS: AMLODIPINE BESYLATE 5 MG TAB PO SCH (07:23)
[2017-05-06] MEDS: LOSARTAN POTASSIUM 50 MG TAB PO SCH (07:23)
[2017-05-06] MEDS: CeleBREX 200 MG CAP PO SCH (07:23)
[2017-05-06] MEDS: SENNA 8.6 MG TAB PO SCH (07:23)
[2017-05-06] MEDS: PANTOprazole SOD 40 MG TAB PO SCH (07:24)
[2017-05-06] MEDS: MULTIVITAMIN TAB PO SCH (07:24)
[2017-05-06] MEDS: INSULIN ASPART 100 UNITS/ML 3 ML PEN SC SCH ×2 (07:29→12:00)
--- NOTE | 2017-05-06 09:14 | Consultant Recommendations ---
Microbiology Technologist Recommendations Date of Service May 06, 2017. Microbiology Technologist Recommendations 66 year old M with PMH Hypertension on 3 antihypertensive agents, hypercholesterolemia, irregular heartbeat but denies history of atrial fibrillation and not on anticoagulation s/p Right total hip arthroplasty on for Right hip end-stage osteoarthritis. Medicine, hospitalist asked to evaluate as operational risk consultant General Appearance: no apparent distress Head: normocephalic, atraumatic Eyes: normal inspection, EOMI, sclerae normal ENT: normal ENT inspection, hearing grossly normal, pharynx normal Neck: supple, no JVD, trachea midline Respiratory/Chest: chest non-tender, lungs clear, normal breath sounds, no respiratory distress, no accessory muscle use Cardiovascular: regular rate, rhythm, no JVD Abdomen/GI: normal bowel sounds, non tender, soft Back: no muscle spasm Extremities: no calf tenderness, no pedal edema, pelvis stable Neurologic/Psych: alert, normal mood/affect, oriented x 3 Assessment/Plan Right total hip arthroplasty: post-op Day 2, MILE drain removed Hematology Anemic Hgb 10.7 post-op Day 1 CBC to Hgb 9 post-op Day 2 CBC MILE drain removed on 05/06/17 advise that patient repeat CBC as outpatient in 3 to 7 days if orthopedics planing to discharge Leukocytosis likely post-surgical inflammation and WBC is downtrending HTN: c/w home dose amlodipine 10 mg daily, HCTZ 12.5 mg daily, Losartan 50 mg daily Dyslipidemia: continue with home dose atorvastatin 20 mg and aspirin 81 mg. Pain medication: outpatient pain medications as per orthopedics Constipation: bowel regimen medications as per orthopedics if patient is discharged with opioid pain medicines
[2017-05-06 10:46] VITALS: BP 116/74; PULSE 82; TEMP 36.9; O2SAT 95
== END 2017-05-06 13:20 | disposition home health service (06) | DRG 470 ==
LOC: C.ACU 04:50 → C.3E 06:50 → ENRESERV 10:12
PROVIDERS: ADMIT Orthopaedic Surgery Sports Medicine; ATTEND Orthopaedic Surgery Sports Medicine
PROC: 0SR903A Replacement of Right Hip Joint with Ceramic Synthetic Substitute, Uncemented, Open Approach (ICD-10-PCS; principal; 2017-05-04 07:00)
DX: M16.11 Unilateral primary osteoarthritis, right hip (principal); I10 Essential (primary) hypertension; E78.00 Pure hypercholesterolemia, unspecified; E11.9 Type 2 diabetes mellitus without complications; E66.9 Obesity, unspecified; K59.00 Constipation, unspecified; Z79.84 Long term (current) use of oral hypoglycemic drugs; Z79.899 Other long term (current) drug therapy; Z68.35 Body mass index [BMI] 35.0-35.9, adult